=== PATIENT | male | born 1990 | race Caucasian/White ===

== ENCOUNTER 2019-04-01 12:34 | Emergency (ER) | payer OTHER ==
[~2019-04-01] VITALS: Ht 175.3 cm; Wt 74.8 kg
[2019-04-01] MEDS ORDERED: DOXYCYCLINE 10100 MG PO (13:18)
[2019-04-01 13:25] VITALS: BP 142/93
== END 2019-04-01 13:32 | disposition home or self-care (01) ==
LOC: M.ERS 12:34
DX: S30.813A Abrasion of scrotum and testes, initial encounter (principal); R21 Rash and other nonspecific skin eruption; Z86.14 Personal history of Methicillin resistant Staphylococcus aureus infection; X58.XXXA Exposure to other specified factors, initial encounter; Y93.89 Activity, other specified; Y92.89 Other specified places as the place of occurrence of the external cause; Y99.8 Other external cause status

== ENCOUNTER 2019-07-01 15:00 | Emergency (ER) | payer OTHER ==
[~2019-07-01] VITALS: Ht 175.3 cm; Wt 63.5 kg
[~2019-07-01 15:00] MED LIST: DOXYCYCLINE 10100 MG PO
[2019-07-01 15:11] VITALS: BP 150/97
== END 2019-07-01 15:11 | disposition home or self-care (01) ==
LOC: M.ERS 15:00
DX: Z53.21 Procedure and treatment not carried out due to patient leaving prior to being seen by health care provider (principal)